=== PATIENT | male | born 1990 | race Caucasian/White ===

== ENCOUNTER 2018-08-04 03:42 | Emergency (ER) | payer BC ==
[~2018-08-04] VITALS: Ht 185.4 cm; Wt 83.9 kg
[2018-08-04] MEDS ORDERED: IV NS 0.9% 1,000 ML BAG IV ONE (04:00)
[2018-08-04] MEDS ORDERED: ONDANSETRON HCL/PF 4 MG/2 ML VIAL IVP ONE (04:00)
[2018-08-04] MEDS ORDERED: ONDANSETRON HCL/PF 4 MG/2 ML VIAL ONE (04:04)
[2018-08-04 04:19] LABS: BASOPHILS % (AUTO) 0.6 % (0.0-2.0); EOSINOPHILS % (AUTO) 0.5 % (0.0-6.0); HEMATOCRIT 43 % (39-51); HEMOGLOBIN 14.5 g/dL (13.5-17.5); LYMPHOCYTES # (AUTO) 2.6 /CMM (0.8-4.8); MEAN CORPUSCULAR HGB CONC 34 g/dl (31.0-36.0); MEAN CORPUSCULAR VOLUME 83 fL (80-96); MONOCYTES # (AUTO) 0.3 /CMM (0.1-1.30); MONOCYTES % (AUTO) 4.1 % (2.0-12.0); NEUTROPHILS # (AUTO) 4.2 /CMM (1.8-8.9); NEUTROPHILS % (AUTO) 58.8 % (43.0-81.0); PLATELET COUNT (AUTO) 222 /CMM (150-450); RED BLOOD CELL COUNT(AUTO) 5.14 MIL/uL (4.5-6.0); WHITE BLOOD COUNT (AUTO) 7.1 K/uL (4.3-11.0)
[2018-08-04 04:28] LABS: CALCIUM, SERUM 8.9 mg/dL (8.5-10.1); CREATININE 0.7 mg/dL (0.6-1.3); POTASSIUM 3.1 mmol/L (3.5-5.1)
[2018-08-04] MEDS ORDERED: PANTOPRAZOLE 80 MG in IV NS 0.9% 500 ML IV ONE (04:30)
--- NOTE | 2018-08-04 04:30 | NUR ---
PT BIBS AOX4 VS ON R/A WELL TOLERATED, C/C N/V BRIGHT BLOOD AT HOME X2 EPISODE, VS STABLE, DENIES ANY PAIN, PLACED ON ER BED 1, SEEN AND EVAL DONE DR ORDOÑEZ AWAITING ORDERS.
[2018-08-04 04:33] LABS: ALBUMIN 4.3 g/dL (3.4-5.0); BILIRUBIN,DIRECT 0.1 mg/dL (0.0-0.2); BILIRUBIN,TOTAL 0.4 mg/dL (0.2-1.0); TOTAL PROTEIN, SERUM 7.5 g/dL (6.4-8.2)
[2018-08-04] MEDS ORDERED: PANTOPRAZOLE 40 MG VIAL ONE (04:57)
--- NOTE | 2018-08-04 05:54 | NUR ---
ADDENDUM: Intravenous End Time Documentation: Protonix 80 mg IVPB: start time: 0554 am; end time: 623 am: IV site:[facility] #20 Port # 1
--- NOTE | 2018-08-04 05:54 | NUR ---
protonix drip changed by dr benavides to bolus after administering medication on aug, md willson, as well as charge nurse adeel. pt tolerating well bolus. no complication noted.
--- NOTE | 2018-08-04 06:24 | NUR ---
Patient discharged to home in stable condition. Rx and meds given. Written and verbal after care instructions given. Patient verbalizes understanding of instruction.
[2018-08-04 06:25] VITALS: BP 123/80
== END 2018-08-04 06:27 | disposition home or self-care (01) ==
LOC: ER 03:47
DX: K92.2 Gastrointestinal hemorrhage, unspecified (principal); E87.6 Hypokalemia; E66.9 Obesity, unspecified; Z68.24 Body mass index [BMI] 24.0-24.9, adult; Z98.84 Bariatric surgery status
CPT/HCPCS: 36415; 71045-TC; 80048-TC; 80076-TC; 83690-TC; 85025-TC; 85610-TC; 86850-TC; C9113; J2405; J7030; J7040